=== PATIENT | male | born 1960 | race Caucasian/White ===

== ENCOUNTER 2021-01-24 14:32 | Emergency (ER) | payer OTHER ==
--- OUTSIDE RECORDS SUMMARY | 2021-01-24 14:38 | XMS REPORT | Continuity of Care Document ---
:1960 Author Organization [facility] t Address [address] [place] [address] Care Team Providers Name Role Phone Nena Attending Clinician Alba Attending Clinician Rory Sheffield Attending Clinician Nena Admitting Clinician Rory Sheffield Admitting Clinician Problems Condition Condition Condition Status Onset Resolution Last Treating Co mments Source Name Details Category Date Date Treatment Clinician Date UNK Diagnosis Active 2021-01-01 Mem oria 2-10 13:37:00 l UNK 00:00: Purdy 00 Active 12/20/2020 [facility] I77.9 Diagnosis Active 2021-01-09 Mem oria 2-10 22:15:00 l I77.9 00:00: Donald 00 Active 12/20/2020 [facility] ANGIOGRAM Diagnosis Active 2019-112020-10-20 Memoria /C 2-09 07:00:00 l RUN-OFF'S 00:00: 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, 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, 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 10/18/2020 [facility] NECK PAIN Diagnosis Active 2015-112016-09-06 Memoria 0-21 14:01:00 l NECK 00:00: Purdy PAIN 00 Active 08/30/2016 [facility] G95.20 - Diagnosis Active 2015-112016-08-29 M emoria UNSPECIFIE 0-19 09:13:00 l D CORD G95.20 - 00:01: Addy n COMPRESSIO UNSPECIFIE 00 N M5 D CORD COMPRESSIO N M5 [facility] Disorder Problem 2021-01-08 Mem oria of 23:14:43 l arteries Disorder Herm daphney and of arterioles arteries , and unspecifie arterioles d , unspecifie d 01/08/2021 [facility] Cervical Problem Active 2021-01-08 Mem oria disc 23:14:43 l disorder Cervical Herm daphney (disorder) disc disorder (disorder) Active Problem 01/08/2021 [facility] Diabetes Problem Active 2021-01-08 Mem oria mellitus 23:14:43 l (disorder) Diabetes He rmann mellitus (disorder) Active Problem 01/08/2021 [facility] Hypertensi Problem Active 2021-01-08 M emoria ve 23:14:43 l disorder, Purdy systemic Hypertensi arterial ve (disorder) disorder, systemic arterial (disorder) Active Problem 01/08/2021 [facility] Neuropathy Problem Active 2021-01-08 M emoria (disorder) 23:14:43 l Donald Neuropathy (disorder) Active Problem 01/08/2021 [facility] CERVICALGI Diagnosis Active 2016-09-06 Memoria A 14:01:00 l Donald CERVICALGI A Active [facility] DISORDER Diagnosis Active 2021-01-09 M emoria OF 22:15:00 l ARTERIES DISORDER Herm daphney AND OF ARTERIOLES ARTERIES , UNS AND ARTERIOLES , UNS Active [facility] Allergies, Adverse Reactions, Alerts Allergy Allergy Status Severity Reaction(s) Onset Inactive Treating Comm ents Source Name Type Date Date Clinician codeine codeine Active Keli Bennett Social History Social Habit Start Date Stop Date Quantity Comments Source Social History 2021-01-04 2021-01-04 Shirley garcia 02:31:28 02:31:28 Medications Ordered Filled Start Stop Current Ordering Indication Dosage Frequency Signature Comments Components Source Medication Medication Date Date Medication? Clinician (SIG) Name Name tramadol Yes 100 mg = 2 Mem oria hydrochlori 2-27 tab, PO, l de 50 MG 19:02: Q6H, PRN Jyoti nn Oral Tablet 00 Pain Score 4-6, # 28 tab, 0 Refill(s), called to pharmacy atorvastati Yes 80 mg = 1 M emoria n 80 mg 2-27 tab, PO, l oral tablet 19:01: Bedtime, # Donald 00 30 tab, 0 Refill(s), Pharmacy: [id number], 167.64, cm, 01/03/21 20:35:00 WHOLESALE ACCOUNT MANAGER, Height, 73.3, kg, 01/03/21 20:35:00 WHOLESALE ACCOUNT MANAGER, Weight clopidogrel Yes 75 mg = 1 M emoria 75 MG Oral 2-27 tab, PO, l Tablet 19:01: Daily, # Donald [Plavix] 00 30 tab, 0 Refill(s), Pharmacy: [id number], 167.64, cm, 01/03/21 20:35:00 WHOLESALE ACCOUNT MANAGER, Height, 73.3, kg, 01/03/21 20:35:00 WHOLESALE ACCOUNT MANAGER, Weight gabapentin Yes 300 mg = 1 M emoria 300 MG Oral 2-27 cap, PO, l Capsule 19:01: TID, # 90 Jyoti nn 00 cap, 0 Refill(s), Pharmacy: [id number], 167.64, cm, 01/03/21 20:35:00 WHOLESALE ACCOUNT MANAGER, Height, 73.3, kg, 01/03/21 20:35:00 WHOLESALE ACCOUNT MANAGER, Weight Flomax No Notes: Memoria 2-26 (Same As: l 23:00: Flomax) Purdy "Do Not Crush" tramadol No Notes: Not Mem oria hydrochlori 2-26 to exceed l de 50 MG 17:59: 400mg/day. Her suther[place] Oral Tablet 00 (Same As: Ultram) Acetaminoph No Notes: Tr tricia en 325 MG / 2-26 (Same as: l Hydrocodone 16:29: [place] Jyoti nn Bitartrate 00 325/5) Do 5 MG Oral not exceed Tablet 4gm/day of [[place] acetaminop 5/325] hen. Docusate No Notes: Memoria 2-26 (Same as: l 15:00: Colace) Donald 00 (Do Not Crush) atorvastati No Notes: Tr tricia n 2-26 (Same as: l 03:00: Lipitor) Purdy 00 only if OK No only if OK M emoria with 2-25 with l Vascular 15:30: Vascular Jyoti nn Surgery: 00 Surgery: Plavix 75 Plavix 75 mg po qDay mg po qDay, reminder, Drug form: MISC, Route: MISCTWAN, 01/04/21 9:30:00 WHOLESALE ACCOUNT MANAGER, Duration: 30 day, Stop date: 02/03/21 8:00:00 CDT, 0 Plavix No Notes: Memoria 2-25 (Same As: l 15:00: Plavix) Donald pantoprazol No Notes: Tr tricia e 2-25 Tablet l 15:00: should not Donald 00 be chewed or crushed. (Same as: Protonix) gabapentin No Notes: Memor ia 600 MG Oral 2-25 (Same as: l Tablet 15:00: Neurontin) Jyoti nn 00 Insulin No Notes: Memoria Glargine 2-25 (Same as: l 100 UNT/ML 15:00: Lantus) Do H ermann Injectable 00 not hold Solution insulin [Lantus] without contacting prescriber WASTE: F/P - Black; E - Municipal Trash Bin "single patient use only" Stable for 28 days at room temperatur e Expires in days from ____Date atorvastati No 80 mg = 1 M emoria n 80 mg 2-25 tab, PO, l oral tablet 14:50: Bedtime Her sutherland 00 Dextrose No 12.5 gm, Memor ia 50% Syringe 2-25 25 mL, l (D50W) 02:45: Route: Donald IVP, Drug Form: INJ, Dosing Weight 73.3, kg, PRN, PRN Blood Glucose Results, Start date: 01/03/21 20:45:00 WHOLESALE ACCOUNT MANAGER, Duration: 30 day, Stop date: 02/02/21 21:44:00 CDT, 0 Glucagon No 1 mg, Memoria 2-25 Route: IM, l 02:45: Drug form: PDR/INJ, PRN, Dosing Weight 73.3, kg, PRN Blood Glucose Results, Start date: 01/03/21 20:45:00 WHOLESALE ACCOUNT MANAGER, Duration: 30 day, Stop date: 02/02/21 21:44:00 CDT, 0 Insulin No Notes: Memoria Lispro 2-25 (Same as: l 02:45: Humalog) Roll in palms of hands gently; Do not shake vigorously . WASTE: F/P - Black; E - Municipal Trash Bin Stable for 28 days at room temperatur e. 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 MANAGER Dose: ;Delay: ;Basal: Naloxone No Notes: Memoria 2-25 Same as l 01:21: Narcan lidocaine No Route: IV, Me moria (ANES) 2-25 Drug form: l 00:45: INJ, ONCE, Stop date: 01/03/21 18:45:00 WHOLESALE ACCOUNT MANAGER neostigmine No Route: IV, Memoria (ANES) 2-25 Drug form: l 00:39: INJ, ONCE, Stop date: 01/03/21 18:39:00 WHOLESALE ACCOUNT MANAGER ondansetron No Route: IV, Memoria (ANES) 2-25 Drug form: l 00:35: INJ, ONCE, Stop date: 01/03/21 18:35:00 WHOLESALE ACCOUNT MANAGER protamine No Route: IV, Me moria (ANES) 10 2-25 Drug form: l mg 00:00: INJ, Start date: 01/03/21 18:00:00 WHOLESALE ACCOUNT MANAGER, Stop date: 01/03/21 19:00:00 WHOLESALE ACCOUNT MANAGER heparin No Route: IV, Tr tricia (ANES) 2-24 Drug form: l 23:02: INJ, ONCE, Stop date: 01/03/21 17:02:00 WHOLESALE ACCOUNT MANAGER ceFAZolin 0 No Route: IV, Me moria (ANES) 1000 -24 Drug form: l mg 22:22: INJ, Start date: 01/03/21 16:22:00 WHOLESALE ACCOUNT MANAGER, Stop date: 01/03/21 17:22:00 WHOLESALE ACCOUNT MANAGER albumin 0 No Route: IV, Tr tricia human -24 Drug form: l (ANES) 250 22:06: INJ, Start H ermann mg date: 01/03/21 16:06:00 WHOLESALE ACCOUNT MANAGER, Stop date: 01/03/21 17:06:00 WHOLESALE ACCOUNT MANAGER glycopyrrol No Route: IV, Memoria ate (ANES) - Drug form: l 21:36: INJ, ONCE, Stop date: 01/03/21 15:36:00 WHOLESALE ACCOUNT MANAGER dexamethaso No Route: IV, Memoria ne (ANES) - Drug form: l 21:36: INJ, ONCE, Stop date: 01/03/21 15:36:00 WHOLESALE ACCOUNT MANAGER norepinephr No Route: IV, Memoria ine (ANES) - Drug form: l 21:20: INJ, ONCE, Stop date: 01/03/21 15:20:00 WHOLESALE ACCOUNT MANAGER propofol 0 No Route: IV, Mem oria (ANES) 2- Drug form: l 19:59: INJ, ONCE, Stop date: 01/03/21 13:59:00 WHOLESALE ACCOUNT MANAGER fentaNYL 0 No Route: IV, Mem oria (ANES) 2-24 Drug form: l 19:59: INJ, ONCE, Stop date: 01/03/21 13:59:00 WHOLESALE ACCOUNT MANAGER ceFAZolin No Route: IV, Me moria (ANES) 2-24 Drug form: l 19:54: INJ, ONCE, Stop date: 01/03/21 13:54:00 WHOLESALE ACCOUNT MANAGER rocuronium No Route: IV, M emoria (ANES) 2-24 Drug form: l 19:44: INJ, ONCE, Stop date: 01/03/21 13:44:00 WHOLESALE ACCOUNT MANAGER vancomycin 2020-0 No Route: IV, M emoria (ANES) 1000 2-24 Drug form: l mg 19:22: INJ, Start Purdy date: 01/03/21 13:22:00 WHOLESALE ACCOUNT MANAGER, Stop date: 01/03/21 14:22:00 WHOLESALE ACCOUNT MANAGER midazolam 2020-0 No Route: IV, Me moria (ANES) 2-24 Drug form: l 19:18: SOLN, Purdy 00 ONCE, Stop date: 01/03/21 13:18:00 WHOLESALE ACCOUNT MANAGER Sodium 2020-0 No Route: IV, Memor ia Chloride 2-24 Total l 0.9% IV 19:01: Volume: Donald (ANES) 1000 00 1,000, mL Start date: 01/03/21 13:01:00 WHOLESALE ACCOUNT MANAGER, Stop date: 01/03/21 14:01:00 WHOLESALE ACCOUNT MANAGER Lactated No Route: IV, Mem oria Ringers 2-24 Total l Injection 18:45: Volume: Jyoti nn IV (ANES) 00 1,000, 1000 mL Start date: 01/03/21 12:45:00 WHOLESALE ACCOUNT MANAGER, Stop date: 01/03/21 13:45:00 WHOLESALE ACCOUNT MANAGER Calcium 2020-0 No 1,000 mL, Memor ia Chloride 2-24 Rate: 75 l 0.0014 14:29: ml/hr, Purdy MEQ/ML / 00 Infuse Potassium over: 13.3 Chloride hr, Route: 0.004 IV, Dosing MEQ/ML / Weight Sodium 68.591 kg, Chloride Total 0.103 Volume: MEQ/ML / 1,000, Sodium Start Lactate date: 0.028 01/03/21 MEQ/ML 8:29:00 Injectable WHOLESALE ACCOUNT MANAGER, Solution Duration: 6 hr, Stop date: 01/03/21 14:28:00 WHOLESALE ACCOUNT MANAGER, 1.8, m2, 0 Vancomycin 2020-0 No 2001 mg: Me moria 2-22 infuse l 20:00: over 2.5 Donald 00 hours For adult patients only: Round to nearest 250 mg per Medical Staff approval MEDICATION WASTE Product Size: 1000 mg Product Wasted: ___ mg Ancef + No Notes: Memoria sterile 2-22 (Same As: l water 20 mL 20:00: Ancef, Herm daphney 00 Kefzol) MEDICATION WASTE Product Size: 1000 mg Product Wasted: ___ mg ondansetron No Route: IV, Memoria (ANES) 12-11 Drug form: l 16:56: INJ, ONCE, Stop date: 12/11/20 10:56:00 WHOLESALE ACCOUNT MANAGER norepinephr No Route: IV, Memoria ine (ANES) 12-11 Drug form: l 16:47: INJ, ONCE, Stop date: 12/11/20 10:47:00 WHOLESALE ACCOUNT MANAGER heparin No Route: IV, Tr tricia (ANES) 12-11 Drug form: l 16:31: INJ, ONCE, Stop date: 12/11/20 10:31:00 WHOLESALE ACCOUNT MANAGER phenylephri No Route: IV, Memoria ne (ANES) 12-11 Drug form: l 16:16: INJ, ONCE, Stop date: 12/11/20 10:16:00 WHOLESALE ACCOUNT MANAGER midazolam No Route: IV, Me moria (ANES) 12-11 Drug form: l 16:11: SOLN, ONCE, Stop date: 12/11/20 10:11:00 WHOLESALE ACCOUNT MANAGER fentaNYL No Route: IV, Mem oria (ANES) 12-11 Drug form: l 16:11: INJ, ONCE, Stop date: 12/11/20 10:11:00 WHOLESALE ACCOUNT MANAGER ceFAZolin No Route: IV, Me moria (ANES) 12-11 Drug form: l 16:11: INJ, ONCE, Stop date: 12/11/20 10:11:00 WHOLESALE ACCOUNT MANAGER vancomycin No Route: IV, M emoria (ANES) 1000 12-11 Drug form: l mg 15:18: INJ, Start date: 12/11/20 9:18:00 WHOLESALE ACCOUNT MANAGER, Stop date: 12/11/20 10:18:00 WHOLESALE ACCOUNT MANAGER propofol No Route: IV, Mem oria (ANES) 10 12-11 Drug form: l mg 15:15: INJ, Start date: 12/11/20 9:15:00 WHOLESALE ACCOUNT MANAGER, Stop date: 12/11/20 10:15:00 WHOLESALE ACCOUNT MANAGER Lactated No Route: IV, Mem oria Ringers 12-11 Total l Injection 15:10: Volume: Jyoti nn IV (ANES) 00 1,000, 1000 mL Start date: 12/11/20 9:10:00 WHOLESALE ACCOUNT MANAGER, Stop date: 12/11/20 10:10:00 WHOLESALE ACCOUNT MANAGER Calcium No 1,000 mL, Memor ia Chloride 12-11 Rate: 75 l 0.0014 13:30: ml/hr, Donald MEQ/ML / 00 Infuse Potassium over: 13.3 Chloride hr, Route: 0.004 IV, Dosing MEQ/ML / Weight Sodium 70.455 kg, Chloride Total 0.103 Volume: MEQ/ML / 1,000, Sodium Start Lactate date: 0.028 12/11/20 MEQ/ML 7:30:00 Injectable WHOLESALE ACCOUNT MANAGER, Solution Duration: 30 day, Stop date: 01/10/21 7:29:00 WHOLESALE ACCOUNT MANAGER, 1.83, m2 clopidogrel Yes 75 mg = 1 M emoria 75 MG Oral 12-07 tab, PO, l Tablet 20:06: Daily, # Donald [Plavix] 00 30 tab, 0 Refill(s) Ancef + No Notes: Memoria sterile 12-07 (Same As: l water 20 mL 20:00: Ancef, Herm daphney 00 Kefzol) MEDICATION WASTE Product Size: 1000 mg Product Wasted: ___ mg Vancomycin No 2000 mg: Me moria 12-07 infuse l 20:00: over 2.5 Donald 00 hours For adult patients only: Round to nearest 250 mg per Medical Staff approval MEDICATION WASTE Product Size: 1000 mg Product Wasted: ___ mg Hydralazine 2019-11 Yes 10 mg, Tr tricia 2-11 Route: l 17:46: IVP, Purdy 00 Q20Min, Dosing Weight 71.506, kg, PRN Elevated BP, Start date: 10/20/20 11:46:00 WHOLESALE ACCOUNT MANAGER, Duration: 2 doses or times, Stop date: Limited # of times Labetalol 2019-11 Yes 10 mg, Memori a 2-11 Route: l 17:46: IVP, Purdy 00 Q5Min, Dosing Weight 71.506, kg, PRN Elevated BP, Start date: 10/20/20 11:46:00 WHOLESALE ACCOUNT MANAGER, Duration: 5 doses or times, Stop date: Limited # of times Acetaminoph 2020-1 Yes 1,000 mg, M emoria en 2-11 Route: PO, l 17:46: Drug form: Donald 00 TAB, ONCE, Dosing Weight 71.506, kg, PRN Pain Score 1-3, Start date: 10/20/20 11:46:00 WHOLESALE ACCOUNT MANAGER Oxycodone 2020-1 Yes 5 mg, Memoria Hydrochlori 2-11 Route: PO, l de 5 MG 17:46: Drug form: Herm daphney Oral Tablet 00 TAB, Q4H, Dosing Weight 71.506, kg, PRN Pain Score 4-6, Start date: 10/20/20 11:46:00 WHOLESALE ACCOUNT MANAGER, Duration: 30 day, Stop date: 11/19/20 11:45:00 WHOLESALE ACCOUNT MANAGER Hydromorpho 2020-1 Yes 0.5 mg, Mem oria ne 2-11 Route: l 17:46: IVP, Purdy 00 Q5Min, Dosing Weight 71.506, kg, PRN Pain Score 7-10, Start date: 10/20/20 11:46:00 WHOLESALE ACCOUNT MANAGER, Duration: 4 doses or times, Stop date: Limited # of times Fentanyl 2019- Yes 50 Memoria 2-11 microgram, l 17:46: Route: Donald 00 IVP, Q5Min, Dosing Weight 71.506, kg, PRN Pain Score 7-10, Priority: Routine, Start date: 10/20/20 11:46:00 WHOLESALE ACCOUNT MANAGER, Duration: 2 doses or times, Stop date: Limited # of times Flumazenil 2019-1 Yes 0.2 mg, Tr tricia 2-11 Route: l 17:46: IVP, PRN, Purdy 00 Dosing Weight 71.506, kg, PRN Benzodiaze pine Reversal, Initial dose, Start date: 10/20/20 11:46:00 WHOLESALE ACCOUNT MANAGER, Duration: 30 day, Stop date: 11/19/20 11:45:00 WHOLESALE ACCOUNT MANAGER Naloxone 2020-1 Yes 0.4 mg, Memori a 2-11 Route: l 17:46: IVP, Donald 00 Q2MIN, Dosing Weight 71.506, kg, PRN Narcotic Reversal, Start date: 10/20/20 11:46:00 WHOLESALE ACCOUNT MANAGER, Duration: 8 doses or times, Stop date: Limited # of times Ondansetron 2019-11 Yes 4 mg, Memor ia 2- Route: l 17:46: IVP, ONCE, Dosing Weight 71.506, kg, PRN Nausea & Vomiting, Start date: 10/20/20 11:46:00 WHOLESALE ACCOUNT MANAGER Aspirin 81 2019-11 Yes 81 mg = 1 Me moria MG Enteric 2-11 tab, PO, l Coated 17:39: Daily, # Purdy Tablet 00 90 tab, 3 Refill(s) clopidogrel 2019-11 Yes 75 mg = 1 M emoria 75 MG Oral 2-11 tab, PO, l Tablet 17:39: Daily, # Purdy [Plavix] 00 90 tab, 1 Refill(s) tramadol 2019-11 Yes 50 mg = 1 Tr tricia hydrochlori 2-11 tab, PO, l de 50 MG 17:39: Q6H, PRN Jyoti nn Oral Tablet 00 Pain, X 10 day, # 40 tab, 0 Refill(s) ondansetron 2019-11 No Route: IV, Memoria (ANES) 2-11 Drug form: l 16:19: INJ, ONCE, Stop date: 10/20/20 10:19:00 WHOLESALE ACCOUNT MANAGER heparin 2019-11 No Route: IV, Tr tricia (ANES) 2-11 Drug form: l 16:04: INJ, ONCE, Stop date: 10/20/20 10:04:00 WHOLESALE ACCOUNT MANAGER propofol 2019-11 No Route: IV, Mem oria (ANES) 2-11 Drug form: l 15:48: INJ, ONCE, Stop date: 10/20/20 9:48:00 WHOLESALE ACCOUNT MANAGER lidocaine 2019-11 No Route: IV, Me moria (ANES) 2-11 Drug form: l 15:43: INJ, ONCE, Stop date: 10/20/20 9:43:00 WHOLESALE ACCOUNT MANAGER midazolam 2019-11 No Route: IV, Me moria (ANES) 2-11 Drug form: l 15:08: SOLN, ONCE, Stop date: 10/20/20 9:08:00 WHOLESALE ACCOUNT MANAGER ceFAZolin 2019-11 No Route: IV, Me moria (ANES) 2-11 Drug form: l 15:08: INJ, ONCE, Stop date: 10/20/20 9:08:00 WHOLESALE ACCOUNT MANAGER fentaNYL 2019-11 No Route: IV, Mem oria (ANES) 2 Drug form: l 15:08: INJ, ONCE, Stop date: 10/20/20 9:08:00 WHOLESALE ACCOUNT MANAGER vancomycin 2019-11 No Route: IV, Kiko stafford (ANES) 1000 12-21 Drug form: l mg 14:38: INJ, Start date: 10/20/20 8:38:00 WHOLESALE ACCOUNT MANAGER, Stop date: 10/20/20 9:38:00 WHOLESALE ACCOUNT MANAGER Calcium 2019-11 No 1,000 mL, Memor ia Chloride 12-21 Rate: 75 l 0.0014 13:12: ml/hr, MEQ/ML / 00 Infuse Potassium over: 13.3 Chloride hr, Route: 0.004 IV, Dosing MEQ/ML / Weight Sodium 71.506 kg, Chloride Total 0.103 Volume: MEQ/ML / 1,000, Sodium Start Lactate date: 0.028 10/20/20 MEQ/ML 7:12:00 Injectable WHOLESALE ACCOUNT MANAGER, Solution Duration: 30 day, Stop date: 11/19/20 7:11:00 WHOLESALE ACCOUNT MANAGER, 1.84, m2 Ancef + 2019-11 No Notes: Memoria sterile 12-19 (Same As: l water 20 mL 21:00: Ancef, Kefzol) MEDICATION WASTE Product Size: 1000 mg Product Wasted: ___ mg Vancomycin 2019-11 No 2000 mg: Me moria 12-19 infuse l 21:00: over 2.5 hours For adult patients only: Round to nearest 250 mg per Medical Staff approval MEDICATION WASTE Product Size: 1000 mg Product Wasted: ___ mg Fish Oil 2019-11 Yes PO, Daily, Mem oria 12-19 0 l 20:07: Refill(s) Metformin 2019-11 Yes 1,000 mg, Mem oria 12-19 PO, BID, 0 l 20:06: Refill(s) pantoprazol 2019-11 Yes 40 mg, PO, Memoria e 2-09 Daily l 20:06: Hydroxyzine 2019-11 Yes 25 mg, PO, Memoria 2 BID, 0 l 20:06: Refill(s) Trulicity 2019-11 Yes 0.75 mg, Tr tricia Pen 2 SUB-Q, l 20:05: qWeek, on Tuesdays, 0 Refill(s) Trulicity Trulicity 2020- No Taina 0.75mg [facility] 8-11 11-02 [facility] - 00:00: 00:00 Memoria 00 :00 [facility] Testosteron Testosteron Yes Taina 0.[address] [facility] e Cypionate e Cypionate 7-15 [facility] - 00:00: Memoria 00 [facility] Lancets Lancets Yes Taina as [facility] 4[facility]13 [facility] - [facility]: Memoria [facility] FreeStyle FreeStyle Yes [facility]ain[facility] as [facility] Lite Test Lite Test 8-09 [facility] - 00:00: Memoria [facility] One Touch One Touch 2017-11 Yes Taina as [facility] Ultra Test Ultra Test 0-30 [facility] - Strips Strips 00:00: Memoria 00 [facility] Metformin Metformin Yes Taina [address] [facility] HCl HCl 4-24 [facility] - 00:00: meal Mem [facility] POLYETHYLEN 2015-11 No Notes: Tr tricia E GLYCOL 0-28 Dissolve l 3350 14:00: in 8 oz of water or juice. (Same as: Miralax) influenza 2015-11 No Notes: Memori a virus 0-28 (Same as: l vaccine, 14:00: Fluzone Addy n inactivated 00 Quadrivale nt, Fluarix Quadrivale nt) For 3 years of age and older (0.5 mL IM) Shake well before use Cyclobenzap 2015-11 Yes 10 mg = 1 M emoria rine 0-28 tab, PO, l hydrochlori 12:04: TID, [facility] 00 for spasm, Oral Tablet # 30 tab, [Flexeril] 0 Refill(s) Docusate 2015-11 Yes 100 mg = 1 Mem oria Sodium 100 0-28 cap, PO, l MG Oral 12:04: Q12H, # 30 Herm daphney Capsule 00 cap, 0 Refill(s) ceFAZolin 2015-11 No Notes: Memori a (SCIP) + 0-28 (Same As: l sodium 03:00: Ancef, Donald chloride 00 Kefzol) 0.9% INJ Cefazolin 100 mL FOR IV SET ONLY MEDICATION WASTE Product Size: 1000 mg Product Wasted: ___ mg Saline 2015-11 No Notes: Memoria Flush 0.9% 0-28 (Same as: l 02:00: BD Purdy 00 Posiflush) sennosides, 2015-11 No Notes: Tr tricia [facility] 0-28 (Same as: l 02:00: Senokot) Donald 00 Docusate 2015-11 No Notes: Memoria 0-28 (Same as: l 02:00: Colace) Purdy 00 (Do Not Crush) oral 2015-11 No Notes: Memoria alcohol 0-27 "Call 2 l (Beer/Wine) 22:00: hours Jyoti nn 00 before next dose due" Regular 2015-11 No 60 Memoria Insulin, 0-27 units) l Human 100 21:05: WASTE: F/P He rmann UNT/ML 00 - Black; E Injectable - Solution Municipal Trash Bin Stable for 28 days at room temperatur e Expires in days from ____Date Dextrose 2015-11 No 12.5 gm, Memor ia 50% Syringe 0-27 25 mL, l 21:05: Route: Donald 00 IVP, Drug Form: INJ, Dosing Weight 63.636, kg, PRN, PRN Abnormal Lab Result, Start date: 09/05/16 16:05:00 CDT, Duration: 30 day, Stop date: 10/05/16 15:04:00 WHOLESALE ACCOUNT MANAGER Saline 2015-11 No Notes: Memoria Flush 0.9% 0-27 (Same as: l 21:05: BD Donald 00 Posiflush) Ondansetron 2015-11 No Notes: Tr tricia 0-27 (Same as: l 21:05: Zofran) Donald 00 MEDICATION WASTE Product Size: 4 mg Product Wasted: ___ mg Acetaminoph 2015-11 No Notes: Do M emoria en 325 MG / 0-27 not exceed l Hydrocodone 21:05: 4gm/day of Bitartrate acetaminop 10 MG Oral hen. Tablet (Same as: [place] 325/10) Hydromorpho 2015-11 No Notes: Tr tricia ne 0-27 Same as l 21:05: Dilaudid Purdy 00 Ativan 2015-11 No Notes: Memoria 0-27 (Same as: l 21:04: Ativan) Donald 00 Ancef 2015-11 No 2 gm, Memoria 0-27 Route: l 18:45: IVPB, ONCE, Dosing Weight 63.636, kg, Start date: 09/05/16 13:45:00 CDT, Stop date: 09/05/16 13:45:00 CDT Hydralazine 2015-11 No Notes: Tr tricia 0-27 (Same as: l 18:07: Apresoline ) Push over 5 minutes Labetalol 2015-11 No 10 mg, 2 Tr tricia 0-27 mL, Route: l 18:07: IVP, Drug form: INJ, Q5Min, Dosing Weight 63.636, kg, PRN Elevated BP, Start date: 09/05/16 13:07:00 CDT, Duration: 5 doses or times, Stop date: Limited # of times Naloxone 2015-11 No Notes: Memoria 0-27 Same as l 18:07: Narcan Oxycodone 2015-11 No Notes: Memori a 0-27 (Same as: l 18:07: Roxicodone ) Hydromorpho 2015-11 No Notes: Tr tricia ne 0-27 (Same as: l 18:07: Dilaudid) Ondansetron 2015-11 No Notes: Tr tricia 0-27 (Same as: l 18:07: Zofran) MEDICATION WASTE Product Size: 4 mg Product Wasted: _0_ mg Flumazenil 2015-11 No Notes: Memor ia 0-27 (Same as: l 18:07: Romazicon) bupivacaine 2015-11 Yes Notes: Tr tricia liposome 0-27 (Same as: l 17:49: Exparel) NOT FOR IV use Postoperat connie analgesia: Infiltrati on (local): Dose is based on surgical site and volume required to cover the area (in general, the maximum total dose is 266 mg). Bunionecto my: 7 mL into the tissues surroundin g the osteotomy and 1 mL into the subcutaneo us tissue of the surgical site (total dose = 8 mL [106 mg]) Hemorrhoid ectomy: 30 mL (20 mL vial diluted with 10 mL NS) divided and administer ed as 6 injections of 5 mL each (total dose = 30 mL [266 mg]) Metformin / 2015-11 Yes PO, 0 Memor ia pioglitazon 0-27 Refill(s) l e 15:13: Lisinopril 2015-11 No PO, Daily, M emoria 0-21 0 l 16:38: Refill(s) gabapentin 2015-11 Yes 1,200 mg = M emoria 600 MG Oral 0-21 2 tab, PO, l Tablet 16:38: BID, # 270 Jyoti nn 00 tab, 0 Refill(s) insulin 2015-11 Yes 14 unit, Memori a detemir 100 0-21 SUB-Q, l UNT/ML 16:38: BID, Purdy Injectable 00 Inject 12 Solution units at [Levemir] 9am and inject 8 units at 9pm Pt states not taking, vial, 0 Refill(s) Gabapentin Gabapentin Yes Taina [address] [facility] HydrOXYzine HydrOXYzine Yes Taina [address] [facility] [address] [facility] Pantoprazol Pantoprazol Yes Taina TAKE [address] [facility] Sodium e Sodium [place] TABLET BY L ukes - MOUTH Memoria EVERY DAY [facility] Vital Signs Vital Name Observation Time Observation Value Comments Source Temperature Oral (F) 2021-01-07 16:09:00 97.2 F [facility] Heart Rate 2021-01-07 16:09:00 [facility] Systolic (mm Hg) 2021-01-07 16:09:00 Tr rial Purdy Diastolic (mm Hg) 2021-01-07 16:09:00 Mem orial Donald Systolic (mm Hg) 2021-01-06 22:03:00 Tr rial Donald Diastolic (mm Hg) 2021-01-06 22:03:00 Mem [facility] Temperature Oral (F) 2021-01-06 22:03:00 98.6 F [facility] Heart Rate 2021-01-06 22:03:00 [facility] Systolic (mm Hg) 2021-01-06 13:51:00 Rt [facility] Diastolic (mm Hg) 2021-01-06 13:51:00 [facility] Temperature Oral (F) 2021-01-06 13:51:00 99.0 F [facility] Heart Rate 2021-01-06 13:51:00 [facility] Respitory Rate 2021-01-05 18:00:00 [facility] Respitory Rate 2021-01-05 17:00:00 [facility] Respitory Rate 2021-01-05 16:00:00 [facility] Height 2021-01-04 02:00:00 167.64 cm [facility] Weight 2021-01-04 02:00:00 [facility] BMI Calculated 2021-01-04 02:00:00 [facility] Height 2021-01-01 19:54:00 167.64 cm [facility] Weight 2021-01-01 19:54:00 [facility] BMI Calculated 2021-01-01 19:54:00 [facility] Respitory Rate 2020-12-11 17:15:00 [facility] Systolic (mm Hg) 2020-12-11 17:15:00 Tr [facility] Diastolic (mm Hg) 2020-12-11 17:15:00 [facility] Respitory Rate 2020-12-11 17:00:00 [facility] Systolic (mm Hg) 2020-12-11 17:00:00 Tr [facility] Diastolic (mm Hg) 2020-12-11 17:00:00 [facility] Respitory Rate 2020-12-11 16:45:00 [facility] Systolic (mm Hg) 2020-12-11 16:45:00 [facility] Diastolic (mm Hg) 2020-12-11 16:45:00 [facility] Heart Rate 2020-12-11 13:32:00 [facility] Temperature Oral (F) 2020-12-07 19:58:00 97.5 F [facility] Heart Rate 2020-12-07 19:58:00 [facility] Respitory Rate 2020-12-07 19:58:00 [facility] Height 2020-12-07 19:41:00 167.64 cm [facility] Weight 2020-12-07 19:41:00 [facility] BMI Calculated 2020-12-07 19:41:00 [facility] Systolic (mm Hg) 2020-10-20 19:00:00 [facility] Diastolic (mm Hg) 2020-10-20 19:00:00 [facility] Systolic (mm Hg) 2020-10-20 18:30:00 [facility] Diastolic (mm Hg) 2020-10-20 18:30:00 [facility] Systolic (mm Hg) 2020-10-20 18:15:00 [facility] Diastolic (mm Hg) 2020-10-20 18:15:00 [facility] Respitory Rate 2020-10-20 18:05:00 [facility] Respitory Rate 2020-10-20 17:50:00 [facility] Respitory Rate 2020-10-20 17:35:00 [facility] Temperature Oral (F) 2020-10-18 20:30:00 98.7 F [facility] Heart Rate 2020-10-18 20:30:00 [facility] Height 2020-10-18 19:49:00 167.64 cm [facility] Weight 2020-10-18 19:49:00 [facility] BMI Calculated 2020-10-18 19:49:00 [facility] Heart Rate 2016-09-06 12:50:00 [facility] Respitory Rate 2016-09-06 12:50:00 [facility] Systolic (mm Hg) 2016-09-06 12:50:00 Tr [facility] Diastolic (mm Hg) 2016-09-06 12:50:00 [facility] Temperature Oral (F) 2016-09-06 12:50:00 99.2 F [facility] Respitory Rate 2016-09-06 09:16:00 [facility] Systolic (mm Hg) 2016-09-06 09:16:00 Tr [facility] Diastolic (mm Hg) 2016-09-06 09:16:00 [facility] Heart Rate 2016-09-06 09:16:00 [facility] Temperature Oral (F) 2016-09-06 09:16:00 98.1 F [facility] Heart Rate 2016-09-06 04:47:00 [facility] Respitory Rate 2016-09-06 04:47:00 [facility] Systolic (mm Hg) 2016-09-06 04:47:00 Tr [facility] Diastolic (mm Hg) 2016-09-06 04:47:00 [facility] Temperature Oral (F) 2016-09-06 04:47:00 97.5 F [facility] BMI Calculated 2016-09-05 15:24:00 [facility] Weight 2016-09-05 15:24:00 [facility] Height 2016-09-05 15:24:00 167.64 cm [facility] Height 2016-09-04 17:27:00 167.64 cm [facility] BMI Calculated 2016-09-04 17:27:00 [facility] Weight 2016-09-04 17:27:00 [facility] Height 2016-08-30 16:40:00 167.64 cm [facility] BMI Calculated 2016-08-30 16:40:00 [facility] Weight 2016-08-30 16:40:00 [facility] Procedures Procedure Date / Time Performed Performing Clinician [facility] e Arthrodesis by anterior 2016-09-05 05:00:00 [facility] interbody technique of cervical region below C2 with bone graft Colonoscopy [facility] End[facility] Angiogram [facility] Encounters Start End Encounter Admission Attending Care Care Encounter Source Date/Time Date/Time Type Type Clinicians Facility Department ID 2021-01-03 Inpatient [facility] MED [id number] MH 08:14:00 [facility] 2021-01-03 2021-01-06 Outpatient [place] [id number] 08:14:00 18:31:00 Sis 03 2021-01-03 2021-01-06 Outpatient MHSE MHSE [id number] 08:14:00 18:31:00 03 2020-12-11 2020-12-11 Outpatient Alba, MHSE MHSE [id number] 06:08:00 13:00:00 Genoveva 2020-12-11 2020-12-11 Outpatient Alba MHSE MHSE [id number] 09:00:00 09:00:00 Genoveva 2020-12-11 2020-12-11 Outpatient [facility]SE [facility] [id number] [facility] 06:08:00 [facility] [facility] 2020-11-27 2020-11-27 Out[facility] [id number] [facility] 2020-11-21 2020-11-21 Outpatient [facility] [id number] [facility] 2020-10-20 2020-10-20 Outpatient MHSE MHSE [id number] MH 06:59:00 06:59:[address] [facility] 2020-10-20 2020-10-20 Outpatient Alba, MHSE MHSE [id number] 06:59:00 06:59:00 Genoveva 2020-10-16 2020-10-16 Outpatient [facility] [id number] [facility] 2020-10-13 2020-10-13 Outpatient [facility] [id number] [facility] 2020-08-24 2020-08-24 Outpatient [facility] [id number] [facility] 2020-08-21 2020-08-21 Outpatient [facility] [id number] [facility] 2020-08-11 2020-08-11 Outpatient [facility] [id number] [facility] 2020-08-04 2020[facility]08-04 [facility] [id number] [facility] 2020-08-01 2020-08-01 [facility] [id number] [facility] 2020-06-20 2020-06-20 [facility] [id number] [facility] 15:31:00 15:31:00 [facility] SergeMD ROCKETHOME s - Road [facility] Medicine l Medicine Outpat[facility] ent Clinics 2020-06-16 2020-06-16 [facility] [id number] 11:37:00 11:37:00 t [facility] LuROCKETHOME s - Drive [facility] Medicine l Medicine Outpati ent Clinics 2020-06-09 2020-06-09 [facility] [id number] [address] 15:14:00 15:14:[address] [facility] Road ROCKETHOME s - Road [facility] Medicine l Medicine Outpati ent Clinics 2020-05-26 2020-05-26 [facility] [id number] 08:45:00 08:45:00 t [facility] s - Road [facility] Medicine l Medicine Outpati ent Clinics 2020-05-24 2020-05-24 [facility] [id number] 11:00:00 11:00:[address] [facility] Road Hobbs s - Road [facility] Medicine l Medicine Outpati ent Clinics 2020-04-28 2020-04-28 [facility] [id number] 14:30:00 14:30:00 t [facility] ThinkVidya s - Road [facility] Medicine l Medicine Outpati ent Clinics 2020-03-27 2020-03-27 [facility] [id number] [address] 08:00:00 08:00:00 t [facility] ThinkVidya s - Road [facility] Medicine l Medicine Outpati ent Clinics 2020-02-21 2020-02-21 [facility] [id number] 15:44:00 15:44:00 [facility] 2020-01-25 2020-01-25 [facility] [id number] 09:00:00 09:00:00 [facility] 2020-01-04 2020-01-04 [facility] [id number] 09:41:00 09:41:00 [facility] 2019-12-27 2019-12-27 [facility] [id number] [address] 11:00:00 11:00:00 [facility] 2016-09-05 2016-09-06 Outpatient Yohannes [facility] [id number] 20:34:00 11:58:00 Kwaku 00 Rory 2016-08-29 2016-08-29 Outpatient Yohannes [facility] [id number] 09:04:00 23:59:00 Kwaku 00 Rory Results Test Description Test Time Test Comments Results Result Comments Source CHEM PANEL 2021-01-04 259 [facility] 09:09:00 CHEM PANEL 2021-01-04 15 [facility] 09:09:00 CHEM PANEL 2021-01-04 0.83 [facility] 09:09:00 CHEM PANEL 2021-01-04 139 [facility] 09:09:00 CHEM PANEL 2021-01-04 4.0 [facility] 09:09:00 CHEM PANEL 2021-01-04 109 [facility] 09:09:00 CHEM PANEL 2021-01-04 27 [facility] 09:09:00 CHEM PANEL 2021-01-04 8.1 [facility] 09:09:00 CHEM PANEL 2021-01-04 7.0 [facility] 09:09:00 CHEM PANEL 2021-01-04 96 [facility] 09:09:00 HEMATOLOGY 2021-01-04 9.5 [facility] 09:09:00 HEMATOLOGY 2021-01-04 3.16 [facility] 09:09:00 HEMATOLOGY 2021-01-04 8.3 [facility] 09:09:00 HEMATOLOGY 2021-01-04 25.7 [facility] 09:09:00 HEMATOLOGY 2021-01-04 81.4 [facility] 09:09:00 HEMATOLOGY 2021-01-04 09:09:00 Test Item Value Reference Range Interpretation Comme nts MCH (test code = MCH) 26.1 pg 27.0-31.0 [facility] UnvubfuXGBJWCKVDC3165-67-82 09:09:0032.1[facility]ann[facility]MATOLOGY 2021-01-04 09:09:0015.3[facility] JoaqvexRKJOOLBIAA0952-98-57 09:09:77585Caynlmiz FelzbniYMWYQVHNMR5638-33-16 09:09:008.2[facility] SisvpocRKXLUNATLB6421-87-01 09:09:0076.6[facility] SvnxbzaKUTPVXRQBO7594-33-22 09:09:0013.0[facility] WDJXGILNXU6012-94-29 09:09:0010.1[facility] HbqcglnDPNZNVQYOW4915-25-03 09:09:00 0.3[facility] YehozgrWIXUJORAIU1268-50-06 09:09:007.3[facility] HermannHEMATOLOGY 2021-01-04 09:09:001.2[facility] HfhagejJEIAZTDEDX6762-69-32 09:09:001.0[facility] HdgebziEHKUWQZKQV1714-18-14 06:54:009.8[facility] PuxxgmhNLLCZCTTTQ5595-38-97 06:54:003.20[facility] XiugipbXVCJDVCXTU1005-67-02 06:54:008.3[facility] RQVEFVSVLW3286-27-96 06:54:0026.1[facility] ErfcoysUWYNTDRWIG0126-64-88 06:54:00 81.6[facility] UdhgrafSIMYXWDUMP8251-90-69 06:54:00 Test Item Value Reference Range Interpretation Comments MCH (test code = MCH) 25.9 pg 27.0-31.0 [facility] GfcfczoMBWKNFRVJL1136-48-70 06:54:0031.8[facility] HermannHEMATOLOGY 2021-01-04 06:54:0015.4[facility] ErrscnqUMYVTTLXZB8971-58-55 06:54:59784Cvmhoqfr BqhvuyaHNTNPSBHUM9468-88-94 06:54:008.8[facility]annBLOOD BANK RESULTS 2021-01-03 14:32:00Product available 3(01/03/21 8:32 AM)[facility] QXFOONEZOP2216-71-42 20:40:00Not Detected (01/01/21 2:40 PM)[facility] CGMEHJI3967-77-63 20:22:00Negative (01/01/21 2:22 PM)[facility]annCHEM BVIAZ0206-80-08 20:22:0097[facility]annCHEM QUIZJ8033-32-98 20:22:0010 [facility]annCHEM ARXCB6538-98-01 20:22:000.84[facility] HermannCHEM PANEL 2021-01-01 20:22:28017Yazbrgss HermannCHEM SCLPG1746-51-25 20:22:004.4[facility]annCHEM NVEPT0844-18-72 20:22:05623Rcmlrctp HermannCHEM FVNGP6356-31-05 20:22:0031[facility]annCHEM SPAJN5168-35-60 20:22:009.5[facility]annCHEM EPCPX9230-05-73 20:22:009.4[facility] HermannCHEM AAKOT4626-47-61 20:22:0096 [facility] JfvqlofQHEJDBIJTD0000-78-47 20:22:008.0[facility]annHEMATOLOGY 2021-01-01 20:22:004.86[facility] WcxaqyhKYKEQJMARZ3330-58-94 20:22:0012.7[facility] XsdhgmyRCBNYUSBCN4554-54-89 20:22:0039.6[facility] RjwfbugNOGYZZSQPG7858-32-42 20:22:0081.5[facility] GspgthhGCONWESDGD6802-17-40 20:22:00 Test Item Value Reference Range Interpretation Comments MCH (test code = MCH) 26.1 pg 27.0-31.0 [facility] RclcryjLKETFNKZXD2171-62-64 20:22:0032.1[facility] HermannHEMATOLOGY 2021-01-01 20:22:0015.4[facility] KyaiuajTLYDIXLSVW6960-29-15 20:22:34045Umgjqsdq QvkavjeMATRUNGJZE4975-06-29 20:22:008.7[facility] RecaimrKBCGJVOKRZ7579-61-63 20:22:00 Test Item Value Reference Range Interpretation Comments PT (test code = PT) 12.6 s 12.0-14.7 [facility] GalvjedSDLIZCHEQP2592-36-62 20:22:00 Test Item Value Reference Range Interpretation Comments INR (test code = INR) 0.95 1 0.85-1.17 [facility] HuujupfTZCEFBFUWE7519-32-44 20:22:00 Test Item Value Reference Range Interpretation Comments PTT (test code = PTT) 33.5 s 22.9-35.8 [facility] EhtdehmRIGIJYESBI9841-14-69 20:22:0047.1[facility] HermannHEMATOLOGY 2021-01-01 20:22:0038.5[facility] JyjplnySOQUPJMLVI1676-93-75 20:22:009.1[facility] TuzwsrjWFOLTIBFHO5032-02-93 20:22:004.0[facility] MgrzllcIOYJENBBAM4546-89-24 20:22:001.3[facility] WboczwuSQPFKKAAVR3166-70-51 20:22:003.8[facility] WOJRQMCSGD0763-32-49 20:22:003.1[facility] LwzuyscARSZYZJVMK3249-48-26 20:22:000.7 [facility] RwwrhqwOZSAZNLFFR4679-24-52 20:22:000.3[facility] HermannHEMATOLOGY 2021-01-01 20:22:000.1[facility] NnnvokbVNCCXYZWMP5840-82-61 20:25:00Not Detected (12/07/20 2:25 PM)[facility]annBL[facility] B[facility] MNJDEQI4726-65-41 20:13:00Negative (12/07/20 2:13 PM)[facility] HermannCHEM FTGCZ0895-87-60 20:13:71905Ersxaqnq HermannCHEM WTOBP6428-78-04 20:13:0013[facility] HermannCHEM QOYXK3884-32-68 20:13:000.94[facility] HermannCHEM XAECW6454-39-59 20:13:46360Fuukxefu HermannCHEM TSBNT1334-70-36 20:13:004.4[facility] HermannCHEM SSNXG7728-36-07 20:13:77565 [facility]annCHEM GTKSQ5097-49-75 20:13:0030[facility] HermannCHEM PANEL 2020-12-07 20:13:009.5[facility] HermannCHEM PTSYR1383-66-61 20:13:009.4[facility] HermannCHEM ZIMMX9840-38-99 20:13:0088[facility] SiewmjaEATTQMANFQ9408-15-22 20:13:0050.3[facility] ZpwjzeiBOHWHFANEU8002-07-42 20:13:0036.4[facility] SRVMTVMEAH4566-23-91 20:13:009.9[facility] BpbkbdcAZGVPGPCLO3524-84-79 20:13:002.6 [facility] EjwjqsgJSXILLRTJC8342-81-31 20:13:000.8[facility] HermannHEMATOLOGY 2020-12-07 20:13:004.3[facility] AugondfPPZJIHCWNH6704-81-33 20:13:003.1[facility] TqylpiwYUVFIHUATQ3384-70-93 20:13:000.9[facility] NnbooycHADTZEDKWL5194-36-84 20:13:000.2[facility] TuhcbgwYKXLXNDOIZ4211-16-40 20:13:000.1[facility] TOGSABKIUB7963-63-23 20:13:008.6[facility] TxnwjsuIURHNGNYVC6101-48-15 20:13:00 5.05[facility] PxmmfkmXWFNPHMDPN9312-80-21 20:13:0013.4[facility] HermannHEMATOLOGY 2020-12-07 20:13:0041.3[facility] FbfltxyDBUFXCVGXO9411-03-06 20:13:0081.9[facility] KegapzhTMSATIJYKN7066-54-37 20:13:00 Test Item Value Reference Range Interpretation Comments MCH (test code = MCH) 26.5 pg 27.0-31.0 [facility] WsjuqazZVOMKODICW3177-92-31 20:13:0032.4[facility] HermannHEMATOLOGY 2020-12-07 20:13:0015.2[facility] DtelvtgQLFBNOJZVL8395-89-87 20:13:72204Eglvrfzw CsmlyzsQOGAXXBDUH0374-63-44 20:13:008.5[facility] HtyjjfpJXJHVPAMAR3906-57-50 20:13:00 Test Item Value Reference Range Interpretation Comments PT (test code = PT) 13.5 s 12.0-14.7 [facility] KkiwatmZKUXBAVGHD5633-66-51 20:13:00 Test Item Value Reference Range Interpretation Comments INR (test code = INR) 1.04 1 0.85-1.17 [facility] XdmmxpzABAMPSHFFI2759-24-29 20:13:00 Test Item Value Reference Range Interpretation Comments PTT (test code = PTT) 33.7 s 22.9-35.8 [facility] TylerannSPECIAL MASLIKWDW2689-50-01 20:54:006.6[facility]annBLOOD BANK LGABKSJ9950-38-13 20:38:00Negative (10/18/20 2:38 PM)[facility] HermannCHEM WDWKO8023-93-00 20:38:99815Euxrlwjk HermannCHEM CTGAH9241-00-64 20:38:0011 [facility] HermannCHEM CKNMR3220-29-68 20:38:001.10[facility] HermannCHEM PANEL 2020-10-18 20:38:63650Iapsxwfj HermannCHEM UNHPE1738-64-57 20:38:004.6[facility] HermannCHEM JASKI4670-65-42 20:38:79007Aoixcjfb HermannCHEM PNUWH0835-10-03 20:38:0031[facility] HermannCHEM DMZJG0299-46-61 20:38:009.6[facility] HermannCHEM BAXTX8317-02-34 20:38:007.6[facility] HermannCHEM TPSPM5642-32-35 20:38:0073 [facility] ReexbloCZMLZHCOHW4735-92-75 20:38:008.3[facility] HermannHEMATOLOGY 2020-10-18 20:38:004.98[facility] XqdytomEXOLYGNBZR2511-25-04 20:38:0013.4[facility] ZxgdropHXDKMGCJMG7939-31-73 20:38:0041.7[facility] ZeeppraACRHFBGMSK3572-89-81 20:38:0083.7[facility] ZveyltkJSSWVSFCOM0779-43-34 20:38:00 Test Item Value Reference Range Interpretation Comments MCH (test code = MCH) 26.8 pg 27.0-31.0 [facility] EopqmlyAGXIKQWPOM8733-67-57 20:38:0032.0[facility] HermannHEMATOLOGY 2020-10-18 20:38:0014.6[facility] TnzwpeqHWNKSSLTHD2258-81-95 20:38:93389Vqdaudtl BheymlaGFZYMTJQRD6760-35-97 20:38:008.6[facility] ZqzysflERPQNYOFYT9744-89-10 20:38:00 Test Item Value Reference Range Interpretation Comments PT (test code = PT) 13.0 s 12.0-14.7 [facility] CczdujtFWMUOMMNRE1382-80-42 20:38:00 Test Item Value Reference Range Interpretation Comments INR (test code = INR) 0.98 1 0.85-1.17 [facility] ZvfgifnIPOWLBHZUE1300-41-50 20:38:00 Test Item Value Reference Range Interpretation Comments PTT (test code = PTT) 33.0 s 22.9-35.8 [facility] GjomfcvDHBZYAWKCZ3402-06-28 20:38:0054.1[facility] HermannHEMATOLOGY 2020-10-18 20:38:0032.1[facility] BfhczxuVMNMYAPSAI7846-37-37 20:38:0010.4[facility] PfxbpkkDEFVUZCUPS3574-73-85 20:38:002.3[facility] MmpcvftEUKMTRFZQP9340-38-90 20:38:001.1[facility] OqczihhPRYYAXKLTQ8152-37-25 20:38:004.5[facility] EUMENXFAHW1067-96-73 20:38:002.7[facility] JllikwnVWIJAZHRTZ3835-39-99 20:38:000.9 [facility] ShpjftkBTIBOFPLRO0500-75-12 20:38:000.2[facility] HermannHEMATOLOGY 2020-10-18 20:38:000.1[facility] CcmpbsrBWENPNVVVB9909-65-02 20:38:00Not Detected (10/18/20 2:38 PM)[facility] HermannCHEM UXIWC5628-18-35 08:41:97330Kjvendon HermannCHEM XXCKJ7512-55-02 08:41:81173Mywjnnmj HermannCHEM FBOGC1795-55-97 08:41:008.7[facility] HermannCHEM PTKXO2985-98-09 08:41:0025[facility] HermannCHEM WYHYA6621-28-52 08:41:004.1[facility] HermannCHEM OOBXF8226-86-91 08:41:02711 [facility] HermannCHEM JPOAA8090-03-25 08:41:007[facility] HermannCHEM PANEL 2016-09-06 08:41:25659Fyhkcgwv HermannCHEM FIYWR0762-03-86 08:41:000.70[facility] HermannCHEM BRAJG3791-75-37 08:41:0013.1[facility] WnqpywaDKUWDGZQYE7803-46-20 08:41:001.02[facility] DwqpeewWRUCLSLUWX1851-62-28 08:41:00 Test Item Value Reference Range Interpretation Comments PTT (test code = PTT) 29.3 s 22.9-35.8 [facility] JkmegqzFFFLAMGHIE8210-99-89 08:41:00 Test Item Value Reference Range Interpretation Comments PT (test code = PT) 13.6 s 12.0-14.7 [facility] VthieitUTNRXSMDBO5005-62-01 08:41:00704Omlxfkdd HermannHEMATOLOGY 2016-09-06 08:41:00 Test Item Value Reference Range Interpretation Comments MCH (test code = MCH) 30.2 pg 27.0-31.0 [facility] CfnzveiHDYXTHEUUL6011-56-34 08:41:0091.4[facility] HermannHEMATOLOGY 2016-09-06 08:41:0038.8[facility] AqfyqerTQVTLTUPKL8228-98-32 08:41:008.8[facility] RlwpusvMUBDGKPTLY9335-69-59 08:41:0012.8[facility] GtompalPAHCHFQWHI3751-17-82 08:41:0015.9[facility] VlenhfhRXMTQWLCFJ9525-65-48 08:41:0033.0[facility] QHQBXBKQDM8002-98-67 08:41:006.6[facility] XieyalbGRALFCRPUC2319-14-74 08:41:00 4.25[facility] LbdnymbWHKTVEUWMT1423-51-80 08:41:0011.7[facility] HermannHEMATOLOGY 2016-09-06 08:41:0023.6[facility] MmifojnQALAPTUUQP6425-70-45 08:41:000.1[facility] EygkcelBCRXDJOJFE1521-38-48 08:41:000.8[facility] GgtmejvGYOMZQEIWF3309-52-96 08:41:001.6[facility] PwvsqzzWESSEOPMXC1626-17-73 08:41:000.6[facility] GRKGBJGGFR4581-59-54 08:41:004.1[facility] DreedwlHAMBIYCWDF0263-92-29 08:41:001.6 [facility] OwrqeoiYNVHHEFDFB7870-97-79 08:41:0062.5[facility] HermannCHEM PANEL 2016-09-04 16:40:81592Blqhbuwh HermannCHEM QKAUV2750-63-08 16:40:007.6[facility] HermannCHEM UMLKX1055-47-85 16:40:003.8[facility] HermannCHEM URZOC6797-44-85 16:40:0059[facility] HermannCHEM DPZWL3266-64-14 16:40:0036[facility] HermannCHEM HTBFL0244-36-13 16:40:000.65[facility] HermannCHEM BLUMT0804-78-44 16:40:01302 [facility] HermannCHEM AIKLD1523-07-75 16:40:0083[facility] HermannCHEM PANEL 2016-09-04 16:40:000.7[facility] HermannCHEM HMAQV5762-05-77 16:40:004.4[facility] HermannCHEM EBVJQ8330-23-66 16:40:0099[facility] HermannCHEM UFXTC0585-98-47 16:40:0027[facility] HermannCHEM QUGRM2592-90-48 16:40:008.7[facility] HermannCHEM AJHXK5360-45-08 16:40:42996Uzuzeoef HermannCHEM QVIAC1101-02-98 16:40:006 [facility] HermannCHEM CXJIZ4032-42-93 16:40:009[facility] HermannCHEM PANEL 2016-09-04 16:40:003.8[facility] HermannCHEM HDMBM0702-37-21 16:40:001.0[facility] HermannCHEM TUBNE5186-39-34 16:40:0015.4[facility] QolfkleHTLMVVBBYM4750-44-64 16:40:001.02[facility] AkrbfpyFRBOHQHEYC6934-97-44 16:40:00 Test Item Value Reference Range Interpretation Comments PTT (test code = PTT) 29.7 s 22.9-35.8 [facility] FyyhzusRWTLNFWNYD6909-08-90 16:40:00 Test Item Value Reference Range Interpretation Comments PT (test code = PT) 13.6 s 12.0-14.7 [facility] IfkrqjuUTIUSFIFXR8557-46-71 16:40:00 Test Item Value Reference Range Interpretation Comments MCH (test code = MCH) 30.2 pg 27.0-31.0 [facility] JisulawQTHDCBWEOG4371-24-59 16:40:0033.5[facility]annHEMATOLOGY 2016-09-04 16:40:0090.2[facility] CmbiuloCACPRJCATQ2675-52-15 16:40:0015.7[facility] CpondhlRAOURRBBKN5043-92-05 16:40:0045.1[facility] DiabeozDKZWIPQDZX9112-30-79 16:40:0015.1[facility] SynzlqeLELIKWKUDD2162-39-62 16:40:005.00[facility] BAITNRCRZO2698-09-03 16:40:005.7[facility] ColkxvgWSXBADMNOH2576-03-54 16:40:61647 [facility] NwbkopvNACLRZAIOC4986-05-91 16:40:008.7[facility]annHEMATOLOGY 2016-09-04 16:40:000.4[facility] ShzsdepUTOEVJOMQL4768-82-86 16:40:00See Note (09/04/16 11:40 AM)[facility] TzkjyrtIPWQQGMCBM9573-66-90 16:40:00 Test Item Value Reference Range Interpretation Comments Angle (test code = Angle) 60.7 degrees 53.0-72.0 [facility] JoeirquJWPZNSCJGH5448-41-36 16:40:00 Test Item Value Reference Range Interpretation Comments K-time (test code = K-time) 2.2 min 1.0-3.0 [facility] EcbrvhiAZBRXUAESY0555-50-90 16:40:00 Test Item Value Reference Range Interpretation Comments R-time (test code = R-time) 6.0 min 5.0-10.0 [facility] RfzbbtpPVCQJTMHXD9969-33-56 16:40:00-1.1[facility]annHEMATOLOGY 2016-09-04 16:40:006.2[facility] EagykqrBGWASSXFER7283-10-88 16:40:00 Test Item Value Reference Range Interpretation Comments Max Amp (test code = Max Amp) 55.3 mm 50.0-70.0 [facility] CgbxsnoJYBCEVZIGP8875-91-75 16:40:0058.4[facility]annHEMATOLOGY 2016-09-04 16:40:001.6[facility] TeyhvyeUGNRYZJYIE5442-45-17 16:40:000.8[facility] LqffwhrRCADEMMQPO3432-81-13 16:40:000.6[facility] VdhzgiePVGPWQYRZK5644-90-94 16:40:0012.0[facility] HtihnpqDSLUFXUFXV1270-91-17 16:40:0028.2[facility] GWHBXJPRHV2870-76-18 16:40:000.7[facility] QerhvjmOKBYVVTVIW8494-64-03 16:40:003.3 [facility] HermannSPECIAL UYNMIMIUG7549-77-25 16:40:008.3[facility]
--- NOTE | 2021-01-24 17:27 | ER ---
Nurse's Notes [facility] Name: Arvin Segundo Age: 60 yrs Sex: Male : 1960 Arrival Date: 01/24/2021 Time: 14:35 Bed 19 Private MD: Diagnosis: Wound dehiscence ;post surgical wound complication Presentation: 01/24 14:53 Chief complaint: Patient states: L groin surgical wound red, swollen, painful since ll1 Friday. [place] to LLE are intact and not red at this time. On Bactrim DS since Friday. Site is not getting better yet. No known fever. Coronavirus screen: Client denies travel out of the [place] in the last 14 days. At this time, the client does not indicate any symptoms associated with coronavirus-19. Ebola Screen: Patient denies travel to an Ebola-affected area in the 21 days before illness onset. Initial Sepsis Screen: Does the patient meet any 2 criteria? No. Patient's initial sepsis screen is negative. Does the patient have a suspected source of infection? Yes: Skin breakdown/wound. Risk Assessment: Do you want to hurt yourself or someone else? Patient reports no desire to harm self or others. Onset of symptoms was January 18, 2021. 14:53 Method Of Arrival: Ambulatory ll1 14:53 Acuity: EDGARDO 3 ll1 Triage Assessment: 14:57 General: Appears in no apparent distress. Behavior is calm, cooperative, appropriate ll1 for age. Pain: Complains of pain in L groin Quality of pain is described as aching. Neuro: No deficits noted. Cardiovascular: No deficits noted. Respiratory: No deficits noted. Derm: surgical wound to L groin is red, swollen, hot to touch, slightly dehisced. No drainage at this time. Edges of internal surgical wound light yellow in color. Historical: - Allergies: 14:57 Codeine; ll1 - PMHx: 14:57 chronic ETOH abuse; quit 3 years ago; Diabetes - IDDM; Diabetes - NIDDM; ll1 - PSHx: 14:57 SPINAL MASS REMOVAL; leg stent; ll1 - Immunization history:: Flu vaccine is up to date. - Social history:: Smoking status: Patient reports the use of cigarette tobacco products, smokes one pack cigarettes per day. Screenin:49 Abuse screen: Denies threats or abuse. Nutritional screening: No deficits noted. tw2 Tuberculosis screening: No symptoms or risk factors identified. Fall Risk None identified. Assessment: 16:17 General: Appears in no apparent distress. well groomed, Behavior is calm, cooperative, tw2 appropriate for age. Neuro: Level of Consciousness is awake, alert, obeys commands, Oriented to person, place, time, situation. Cardiovascular: Patient's skin is warm and dry. Respiratory: Airway is patent Respiratory effort is even, unlabored, Respiratory pattern is regular, symmetrical. Musculoskeletal: Range of motion: intact in all extremities. 16:59 Reassessment: provider at bedside at this time. tw2 17:35 Reassessment: Patient appears in no apparent distress at this time. No changes from tw2 previously documented assessment. Patient and/or family updated on plan of care and expected duration. Pain level reassessed. Patient is alert, oriented x 3, equal unlabored respirations, skin warm/dry/pink. Vital Signs: 14:53 BP 139 / 68; Pulse 72; Resp 17; Temp 98.6; Pulse Ox 100% ; Weight 69.85 kg; Height 5 ll1 ft. 6 in. (167.64 cm); Pain 2/10; 17:24 BP 119 / 63; Pulse 75; Resp 17; Pulse Ox 99% on R/A; tw2 14:53 Body Mass Index 24.85 (69.85 kg, 167.64 cm) ll1 ED Course: 14:35 Patient arrived in ED. ds1 14:55 Triage completed. ll1 14:57 Arm band placed on. ll1 15:17 Wai Miller MD is Attending Physician. ps1 16:16 Bed in low position. Call light in reach. Pulse ox on. NIBP on. Warm blanket given. tw2 16:49 Serenity Aldridge, WEST is Primary Nurse. tw2 17:21 Wound care: to appears to be a dehissence of wound on the lower left abdominal fold tw2 located on left lower quadrant was dressed with 4X4s, , ns saturated 4 x 4 gauze covered with 4x4 gauze and secured with tape, Patient tolerated well. 17:23 No provider procedures requiring assistance completed. Patient did not have IV access tw2 during this emergency room visit. Administered Medications: No medications were administered Outcome: 17:26 Discharge ordered by . ps1 17:35 Discharged to home ambulatory. tw2 17:35 Condition: stable 17:35 Discharge instructions given to patient, Instructed on discharge instructions, follow up and referral plans. medication usage, wound care, Demonstrated understanding of instructions, follow-up care, medications, wound care, Prescriptions given X 1. 17:35 Patient left the ED. tw2 Signatures: Sara Carrera ds1 Serenity Aldridge RN RN tw2 Wai Miller MD MD ps1 Alicia Handy RN RN ll1 Corrections: (The following items were deleted from the chart) 14:57 14:53 BP 98 / 41; Pulse 72bpm; Resp 17bpm; Pulse Ox 100%; Temp 98.6F; 69.85 kg; Height ll1 5 ft. 6 in.; BMI: 24.8; Pain 2/10; ll1
--- NOTE | 2021-01-24 17:27 | EDPHYS ---
Physician Documentation [facility] Name: Arvin Segundo Age: 60 yrs Sex: Male : 1960 Arrival Date: 01/24/2021 Time: 14:35 Bed 19 Private MD: ED Physician Wai Miller HPI: 01/24 17:14 This 60 yrs old Male presents to ER via Ambulatory with complaints of Post ps1 Surgical Incison Issue. 17:14 patient is a vasculo-path with recent bypass by vascular with healing wounds. He ps1 presented after wound dehiscence and evaluation of infection. transverse wound in left groin is yellow and open. No purulent discharge. Was put on Bactrim for 7 days by vascular surgeon. No fever. Follow up scheduled for next Friday. . Historical: - Allergies: 14:57 Codeine; ll1 - PMHx: 14:57 chronic ETOH abuse; quit 3 years ago; Diabetes - IDDM; Diabetes - NIDDM; ll1 - PSHx: 14:57 SPINAL MASS REMOVAL; leg stent; ll1 - Immunization history:: Flu vaccine is up to date. - Social history:: Smoking status: Patient reports the use of cigarette tobacco products, smokes one pack cigarettes per day. ROS: 17:14 Constitutional: Negative for fever, chills, and weight loss, Cardiovascular: Negative ps1 for chest pain, palpitations, and edema, Respiratory: Negative for shortness of breath, cough, wheezing, and pleuritic chest pain, Abdomen/GI: Negative for abdominal pain, nausea, vomiting, diarrhea, and constipation. 17:14 Skin: Positive for surgical scars, wound dehiscense in left groin, and stapled incisions. . Exam: 17:14 Constitutional: This is a well developed, well nourished patient who is awake, alert, ps1 and in no acute distress. Head/Face: Normocephalic, atraumatic. Eyes: Pupils equal round and reactive to light, extra-ocular motions intact. Lids and lashes normal. Conjunctiva and sclera are non-icteric and not injected. Cardiovascular: Regular rate and rhythm. No gallops, murmurs, or rubs. Normal PMI, no JVD. No pulse deficits. Respiratory: Lungs have equal breath sounds bilaterally, clear to auscultation and percussion. No rales, rhonchi or wheezes noted. No increased work of breathing, no retractions or nasal flaring. Abdomen/GI: Soft, non-tender, with normal bowel sounds. No distension or tympany. No guarding or rebound. No evidence of tenderness throughout. 17:14 Skin: Wound recheck: left groin surgical site open and gaping with subcutaneous tissue exposed. Appears to have been subcuticular stitch that failed. No purulence. Mild erythema which appears to be inflammation and granulation tissue formation. Vital Signs: 14:53 BP 139 / 68; Pulse 72; Resp 17; Temp 98.6; Pulse Ox 100% ; Weight 69.85 kg; Height 5 ll1 ft. 6 in. (167.64 cm); Pain 2/10; 17:24 BP 119 / 63; Pulse 75; Resp 17; Pulse Ox 99% on R/A; tw2 14:53 Body Mass Index 24.85 (69.85 kg, 167.64 cm) ll1 MDM: 17:14 Differential diagnosis: wound dehiscence, infection NOS, post surgical complication, ps1 and others. Data reviewed: vital signs, nurses notes, and as a result, I will discharge patient. Counseling: I had a detailed discussion with the patient and/or guardian regarding: the historical points, exam findings, and any diagnostic results supporting the discharge/admit diagnosis, the need for outpatient follow up, to return to the emergency department if symptoms worsen or persist or if there are any questions or concerns that arise at home. 17:26 Patient medically screened. ps1 01/24 17:21 Order name: Wound dressing; Complete Time: 17:21 tw2 Administered Medications: No medications were administered Disposition: 01/24/21 17:26 Discharged to Home. Impression: Wound dehiscence , post surgical wound complication. - Condition is Stable. - Discharge Instructions: Wound Dehiscence. - Prescriptions for Keflex 500 mg Oral Capsule - take 1 capsule by ORAL route every 8 hours for 10 days; 30 capsule. - Medication Reconciliation Form, Thank You Letter, Antibiotic Education, Prescription Opioid Use form. - Follow up: Private Physician; When: 48 Hours; Reason: Wound Recheck, Fever > 102 F, Worsening of condition, Recheck today's complaints. Follow up: Emergency Department; When: As needed; Reason: Fever > 102 F, Worsening of condition. - Problem is an ongoing problem. - Symptoms are unchanged. Signatures: Serenity Aldridge RN RN tw2 Wai Miller MD MD ps1 Alicia Handy RN RN ll1 Corrections: (The following items were deleted from the chart) 17:35 17:26 01/24/2021 17:26 Discharged to Home. Impression: Wound dehiscence ; post surgical tw2 wound complication. Condition is Stable. Forms are Medication Reconciliation Form, Thank You Letter, Antibiotic Education, Prescription Opioid Use. Follow up: Private Physician; When: 48 Hours; Reason: Wound Recheck, Fever > 102 F, Worsening of condition, Recheck today's complaints. Follow up: Emergency Department; When: As needed; Reason: Fever > 102 F, Worsening of condition. Problem is an ongoing problem. Symptoms are unchanged. ps1
[2021-01-24 17:44] VITALS: TEMP 98.6
[2021-01-24 17:45] VITALS: BP 119/63; O2SAT 99
== END 2021-01-24 17:35 | disposition home or self-care (01) ==
LOC: ER 14:32
DX: T81.31XA Disruption of external operation (surgical) wound, not elsewhere classified, initial encounter (principal); F17.210 Nicotine dependence, cigarettes, uncomplicated; E11.9 Type 2 diabetes mellitus without complications; Z79.4 Long term (current) use of insulin
CPT/HCPCS: 99283